=== PATIENT | female | born 1985 | race African-American/Black ===

== ENCOUNTER 2024-06-12 05:15 | Emergency (ER) | payer MEDICAID ==
[~2024-06-12] VITALS: Ht 160 cm; Wt 74.3 kg
[2024-06-12 05:19] VITALS: O2SAT 98
[2024-06-12 06:00] VITALS: BP 127/85; PULSE 74; RESP 20; TEMP 36.8; O2SAT 99
== END 2024-06-12 10:32 | disposition left against medical advice (07) ==
LOC: ER 05:15
DX: R53.1 Weakness (principal); Z53.21 Procedure and treatment not carried out due to patient leaving prior to being seen by health care provider